=== PATIENT | male | born 1975 | race Caucasian/White ===

== ENCOUNTER 2016-05-08 08:17 | Emergency (ER) | payer MEDICAID ==
[2016-05-08 08:18] VITALS: BMI 30.3
[2016-05-08 08:31] VITALS: TEMP 97.9
[2016-05-08] MEDS ORDERED: NS 1,000 ML IV ONE (09:00)
[2016-05-08] MEDS ORDERED: MORPHINE 4 MG/ML INJECTION IV ONE (09:00)
[2016-05-08] MEDS ORDERED: ONDANSETRON HCL 4 MG/2 ML VIAL IV ONE (09:00)
--- NOTE | 2016-05-08 09:30 | DIRPT ---
CLINICAL DATA: Left side abdominal pain for 1 week EXAM: ABDOMEN - 2 VIEW COMPARISON: CT scan 05/02/2016 FINDINGS: There is normal small bowel gas pattern. Nonspecific air-fluid levels are noted in right colon without significant colonic distension. No free abdominal air. IMPRESSION: Normal small bowel gas pattern. Nonspecific air-fluid levels are noted in right colon without significant colonic distension. Electronically Signed By: John Lentz M.D. On: 05/08/2016 09:27
[2016-05-08 09:39] LABS: AUTOMATED BASOPHIL 0.8 % (0-2); AUTOMATED EOSINOPHIL 1.2 % (0-5); AUTOMATED LYMPH 16.5 % (17-44); AUTOMATED MONOCYTE 6.7 % (3-10); AUTOMATED NEUTROPHIL 74.8 % (45-76); MPV 6.7 fL (7.4-10.4)
--- NOTE | 2016-05-08 09:46 | EDPRACDOC ---
- General Information Information Source: Patient Mode Of Arrival: Car - History of Present Illness Onset: 1 WK Pain Location: Reports: LLQ, Flank (LEFT) Pain Context: Reports: Spontaneous Pain Severity: Moderate Pain Quality: Reports: Sharp, Stabbing Pain Radiation: Reports: No Radiation Adult Abdominal History: Reports: Similar Pain (dx) Modifying Factors: improves with: Nothing Oral Intake: Normal Urinary Output: Normal <Prachi Moran - Last Filed: 05/08/16 10:12> <Antonio Carmona - Last Filed: 05/10/16 07:22> - General Information Chief Complaint: Abdominal Pain Stated Complaint: LEFT FLANK PAIN Time Seen by Provider: 05/08/16 08:41 Home Medications: Home Medications Olmesartan Medoxomil [Benicar] 40 mg PO DAILY 09/14/12 Escitalopram Oxalate [Lexapro] 10 mg PO DAILY 02/03/15 Omeprazole [Prilosec] 20 mg PO DAILY 04/08/16 Oxycodone HCl [Oxycodone Immediate Release] 10 tab PO TID 04/08/16 Polysorbate 80/Glycerin [Refresh Dry Eye Therapy Drops] 1 each OU BID #30 droperette 04/19/16 Ergocalciferol (Vitamin D2) [Vitamin D2] 2,000 unit PO DAILY 05/02/16 Ondansetron [Zofran Odt] 4 mg PO Q6H PRN #20 tab.rapdis 05/02/16 Dicyclomine HCl [Bentyl] 10 mg PO Q6H #28 cap 05/08/16 Prednisone [Deltasone, Orasone] 2 tabs PO DAILY #20 tab 05/08/16 Allergies/Adverse Reactions: Allergies Allergy/AdvReac Type Severity Reaction Status Date / Time clindamycin Allergy Rash-Genera Verified 05/08/16 08:28 lized telmisartan [From Micardis] Allergy Rash-Genera Verified 05/08/16 08:28 lized - History of Present Illness HPI: PT PRESENTS TODAY WITH AOC LLQ ABD PAIN X 1 WEEK. PT STATES THAT HE HAS CROHN' S DISEASE AND BELIEVES HE IS HAVING A FLARE UP. WAS SEEN HERE LAST WEEK FOR SAME AND HAD NEGATIVE CT. FOLLOWS DR. ARMAS AND HAD RECENT EGD SHOWING MILD GASTRITIS. STATES CALLED [facility] BUT HE IS OUT OF TOWN. STATES PREDNISONE WAS WORKING FOR HIS PAIN BUT FEELS HE DID NOT HAVE "ENOUGH OF A DOSE ". DENIES FEVER, CP, SHOB, N/V/D, DYSURIA. NO APPARENT DISTRESS UPON MY ARRIVAL. (Prachi Moran) ED Past Medical History - History Reviewed Yes Nurses notes reviewed and agree except as marked - Patient Medical History Cardiac History: Reports: Hypertension Respiratory History: Reports: Pneumonia (3-4- years ago) GI/ History: Reports: IBD (CROHNS, IV REMICADE Q 6WEEKS.) Musculoskeletal History: Reports: Arthritis Psychological History: Reports: Anxiety, Substance Use Disorder. Denies: Depression Additional Past Medical History: CROHN'S DISEASE Surgical History: Reports: Other (Small-bowel resection) - Family Medical History Reports: Hypertension (grandfather), Diabetes (grandmother), Cancer (grandmother - multiple myleloma). Denies: Stroke, Cardiac Disorders - Social Medical History Smoking Status: Current some day smoker Social History: Reports: Substance Use Disorder <Prachi Moran - Last Filed: 05/08/16 10:12> EDM Review of Systems - Review of Systems ROS Negative Except as Marked: Yes All systems reviewed and were negative except as marked Constitutional: No Symptoms Reported Respiratory: No Symptoms Reported Cardiovascular: No Symptoms Reported Gastrointestinal: Pain Genitourinary: No Symptoms Reported Neurological: No Symptoms Reported Musculoskeletal: No Symptoms Reported Integumentary: No Symptoms Reported <Prachi Moran - Last Filed: 05/08/16 10:12> - Physical Exam Constitutional: Alert (Awake), No apparent distress Oriented to: Time, Person, Place - HEENT Head: Normal Eye Exam: Normal Neck: Normal, Denies Pain, Midline - Respiratory/Cardiovascular Respiratory: Normal - CTA Cardiovascular: Tachycardia - GI Auscultation: Decreased (HASN'T EATEN IN 12 HOURS) Palpation: Normal Tenderness: Moderate, LLQ Keenan's Sign: Negative - Bladder: Normal - Musculoskeletal Back: Normal Extremities: Normal - Integumentary Skin: Normal Lymphatics: Normal - Neurologic Cerebellar: Normal Mood Description: Normal Thought: Coherent Perception: Normal <Prachi Moran - Last Filed: 05/08/16 10:12> - Results 05/08/16 09:30 05/08/16 09:30 <Prachi Moran - Last Filed: 05/08/16 10:12> - Results 05/08/16 09:30 05/08/16 09:30 <Antonio Carmona - Last Filed: 05/10/16 07:22> - Results WBC 14.7 xk/uL (3.8-10.8) H 05/08/16 09:30 RBC 5.40 xM/uL (4.70-6.10) 05/08/16 09:30 Hgb 16.3 g/dL (14.0-18.0) D 05/08/16 09:30 Hct 47.5 % (42-52) 05/08/16 09:30 MCV 88 fL (80-94) 05/08/16 09:30 MCH 30.2 pg (27-32) 05/08/16 09:30 MCHC 34.4 g/dl (33-36) 05/08/16 09:30 RDW 13.4 % (11.5-14.5) 05/08/16 09:30 Plt Count 178 xk/uL (130-400) 05/08/16 09:30 MPV 6.7 fL (7.4-10.4) L 05/08/16 09:30 Neut % (Auto) 74.8 % (45-76) 05/08/16 09:30 Lymph % (Auto) 16.5 % (17-44) L 05/08/16 09:30 Morgan % (Auto) 6.7 % (3-10) 05/08/16 09:30 Eos % (Auto) 1.2 % (0-5) 05/08/16 09:30 Baso % (Auto) 0.8 % (0-2) 05/08/16 09:30 Absolute Neuts (auto) 10.88 xk/uL (1.7-8.2) H 05/08/16 09:30 Absolute Lymphs (auto) 2.35 xk/uL (0.65-4.75) 05/08/16 09:30 Sodium 141 mEq/L (137-146) 05/08/16 09:30 Potassium 3.8 mEq/L (3.5-5.1) 05/08/16 09:30 Chloride 102 mEq/L (98-107) 05/08/16 09:30 Carbon Dioxide 27 mMOL/L (22-33) 05/08/16 09:30 Anion Gap 16 mEq/L (8-16) 05/08/16 09:30 BUN 20 MG/DL (9-20) 05/08/16 09:30 Creatinine 0.70 MG/DL (0.66-1.25) 05/08/16 09:30 Estimated GFR (MDRD) > 60 mL/min (>=60) 05/08/16 09:30 Glucose 90 MG/DL (70-99) 05/08/16 09:30 Calculated Osmolality 274 MOs/Kg (270-290) 05/08/16 09:30 Calcium 9.2 MG/DL (8.4-10.2) 05/08/16 09:30 Total Bilirubin 0.7 MG/DL (0.2-1.3) 05/08/16 09:30 AST 26 IU/L (17-59) 05/08/16 09:30 ALT 43 IU/L (21-72) 05/08/16 09:30 Alkaline Phosphatase 102 IU/L (38-126) 05/08/16 09:30 Total Protein 7.9 G/DL (6.3-8.2) 05/08/16 09:30 Albumin 4.5 G/DL (3.5-5.0) 05/08/16 09:30 Urine Color Yellow 05/08/16 09:43 Urine Clarity Clear 05/08/16 09:43 Urine pH 6.0 (5.0-8.0) 05/08/16 09:43 Ur Specific [place] 1.020 (1.003-1.035) 05/08/16 09:43 Urine Protein Neg (NEG/TRACE) 05/08/16 09:43 Urine Glucose (UA) Neg (NEGATIVE) 05/08/16 09:43 Urine Ketones Neg (NEGATIVE) 05/08/16 09:43 Urine Occult Blood 1+ (NEG/TRACE) H 05/08/16 09:43 Urine Nitrite Neg (NEGATIVE) 05/08/16 09:43 Urine Bilirubin Neg (NEGATIVE) 05/08/16 09:43 Urine Urobilinogen <2.0 MG/DL (0-1) 05/08/16 09:43 Ur Leukocyte Esterase Neg (NEGATIVE) 05/08/16 09:43 Urine RBC 0-2 (0-2) 05/08/16 09:43 Urine WBC 0-2 (0-2) 05/08/16 09:43 Urine Mucus Occ (NEG/OCC) 05/08/16 09:43 Urine Opiates Screen *positive* (NEGATIVE) H 05/08/16 09:43 Ur Oxycodone Screen *positive* (NEGATIVE) H 05/08/16 09:43 Urine Methadone Screen Neg (NEGATIVE) 05/08/16 09:43 Ur Barbiturates Screen Neg (NEGATIVE) 05/08/16 09:43 Ur Tricyclics Screen Neg (NEGATIVE) 05/08/16 09:43 Ur Phencyclidine Scrn Neg (NEGATIVE) 05/08/16 09:43 Ur Amphetamines Screen Neg (NEGATIVE) 05/08/16 09:43 U Methamphetamines Scrn Neg (NEGATIVE) 05/08/16 09:43 Urine MDMA Screen Neg (NEGATIVE) 05/08/16 09:43 U Benzodiazepines Scrn *positive* (NEGATIVE) H 05/08/16 09:43 Urine Cocaine Screen Neg (NEGATIVE) 05/08/16 09:43 Ur THC Screen *positive* (NEGATIVE) H 05/08/16 09:43 Lab Results 05/08/16 05/08/16 05/08/16 09:43 09:43 09:30 WBC RBC Hgb Hct MCV MCH MCHC RDW Plt Count MPV Neut % (Auto) Lymph % (Auto) [place] % (Auto) Eos % (Auto) Baso % (Auto) Absolute Neuts (auto) Absolute Lymphs (auto) Sodium 141 Potassium 3.8 Chloride 102 Carbon Dioxide 27 Anion Gap 16 BUN 20 Creatinine 0.70 Estimated GFR (MDRD) > 60 Glucose 90 Calculated Osmolality 274 Calcium 9.2 Total Bilirubin 0.7 AST 26 ALT 43 Alkaline Phosphatase 102 Total Protein 7.9 Albumin 4.5 Urine Color Yellow Urine Clarity Clear Urine pH 6.0 Ur Specific [place] 1.020 Urine Protein Neg Urine Glucose (UA) Neg Urine Ketones Neg Urine Occult Blood 1+ H Urine Nitrite Neg Urine Bilirubin Neg Urine Urobilinogen <2.0 Ur Leukocyte Esterase Neg Urine RBC 0-2 Urine WBC 0-2 Urine Mucus Occ Urine Opiates Screen *positive* H Ur Oxycodone Screen *positive* H Urine Methadone Screen Neg Ur Barbiturates Screen Neg Ur Tricyclics Screen Neg Ur Phencyclidine Scrn Neg Ur Amphetamines Screen Neg U Methamphetamines Scrn Neg Urine MDMA Screen Neg U Benzodiazepines Scrn *positive* H Urine Cocaine Screen Neg Ur THC Screen *positive* H 05/08/16 09:30 WBC 14.7 H RBC 5.40 Hgb 16.3 D Hct 47.5 MCV 88 MCH 30.2 MCHC 34.4 RDW 13.4 Plt Count 178 MPV 6.7 L Neut % (Auto) 74.8 Lymph % (Auto) 16.5 L Morgan % (Auto) 6.7 Eos % (Auto) 1.2 Baso % (Auto) 0.8 Absolute Neuts (auto) 10.88 H Absolute Lymphs (auto) 2.35 Sodium Potassium Chloride Carbon Dioxide Anion Gap BUN Creatinine Estimated GFR (MDRD) Glucose Calculated Osmolality Calcium Total Bilirubin AST ALT Alkaline Phosphatase Total Protein Albumin Urine Color Urine Clarity Urine pH Ur Specific [place] Urine Protein Urine Glucose (UA) Urine Ketones Urine Occult Blood Urine Nitrite Urine Bilirubin Urine Urobilinogen Ur Leukocyte Esterase Urine RBC Urine WBC Urine Mucus Urine Opiates Screen Ur Oxycodone Screen Urine Methadone Screen Ur Barbiturates Screen Ur Tricyclics Screen Ur Phencyclidine Scrn Ur Amphetamines Screen U Methamphetamines Scrn Urine MDMA Screen U Benzodiazepines Scrn Urine Cocaine Screen Ur THC Screen (Antonio Carmona) - Additional Information UNREMARKABLE LABS/IMAGING. PT HAS ACTIVE NARCOTIC PRESCRIPTION AT HOME. ( Prachi Moran) Decision Time to Discharge: 10:13 - Departure Disposition: Home Education/Counseling Given To: Patient Education/Counseling Given Regarding: Diagnosis, Treatment, Follow Up <Parchi Moran - Last Filed: 05/08/16 10:12> <Antonio Carmona - Last Filed: 05/10/16 07:22> - Departure Condition: Good Final Diagnosis: Abdominal pain Instructions: Acute Abdominal Pain (ED) Referrals: Len Vicente MD [Primary Care Provider] - One Week Milton Armas MD [Staff Physician] - One Week Prescriptions: Dicyclomine HCl [Bentyl] 10 mg PO Q6H #28 cap Prednisone [Deltasone, Orasone] 2 tabs PO DAILY #20 tab Additional Instructions: CONTINUE OTHER PRESCRIPTIONS AT HOME PRESCRIBED. FOLLOW UP WITH DR. ARMAS AND PCP. FEEL FREE TO RETURN TO ED AT ANY POINT FOR ANY WORSE/ CONCERNING SYMPTOMS.
[2016-05-08 09:48] LABS: BLOOD UREA NITROGEN 20 MG/DL (9-20); CALCIUM 9.2 MG/DL (8.4-10.2); CALCULATED OSMOLALITY 274 MOs/Kg (270-290); CHLORIDE 102 mEq/L (98-107); GLUCOSE 90 MG/DL (70-99); SODIUM LEVEL 141 mEq/L (137-146); TOTAL PROTEIN 7.9 G/DL (6.3-8.2)
[2016-05-08 09:49] LABS: ALL NEG? NO
[2016-05-08 09:56] LABS: MDMA* NEG (NEGATIVE); METHAMPHETAMINES NEG (NEGATIVE)
[2016-05-08 09:57] LABS: OXYCODONE *POSITIVE* (NEGATIVE)
[2016-05-08 09:58] LABS: LEUKOCYTES/URINE NEG (NEGATIVE); NITRITE/URINE NEG (NEGATIVE); RBC/URINE 0-2 (0-2); URINE OCCULT BLOOD 1+ (NEG/TRACE); WBC/URINE 0-2 (0-2)
[2016-05-08] MEDS ORDERED: KETOROLAC TROMETH 30 MG/ML VIAL IV ONE (10:15)
[2016-05-08 10:56] VITALS: BP 120/71; PULSE 85
== END 2016-05-08 10:51 | disposition home or self-care (01) ==
LOC: ED 08:17
DX: R10.32 Left lower quadrant pain (principal)
CPT/HCPCS: 36415; 74020; 80053; 80307; 81001; 85025; 96361; 96374; 96375; 99283; J1885; J2270; J2405

== ENCOUNTER 2016-05-24 12:43 | Emergency (ER) | payer MEDICAID ==
[2016-05-24 13:04] VITALS: TEMP 98.2; BMI 30.5
[2016-05-24 13:24] LABS: RBC/URINE 0-2 (0-2); WBC/URINE 0-2 (0-2)
[2016-05-24 13:25] LABS: LEUKOCYTES/URINE NEG (NEGATIVE); NITRITE/URINE NEG (NEGATIVE); URINE OCCULT BLOOD NEG (NEG/TRACE)
[2016-05-24] MEDS ORDERED: SODIUM CHLORIDE 0.9% 3 ML FLUSH FLUSH PRN (14:24)
[2016-05-24] MEDS ORDERED: MORPHINE 4 MG/ML INJECTION IV ONE (14:24)
[2016-05-24] MEDS ORDERED: NS 1,000 ML IV ONE ×2 (14:24)
[2016-05-24] MEDS ORDERED: ONDANSETRON HCL 4 MG/2 ML VIAL IV ONE (14:24)
--- NOTE | 2016-05-24 14:28 | EDPRACDOC ---
- General Information Chief Complaint: Male Urogenital Problems Stated Complaint: LEFT SIDED PAIN Time Seen by Provider: 05/24/16 14:19 Information Source: Patient Mode of Arrival: Car Home Medications: Home Medications Olmesartan Medoxomil [Benicar] 40 mg PO DAILY 09/14/12 Escitalopram Oxalate [Lexapro] 10 mg PO DAILY 02/03/15 Omeprazole [Prilosec] 20 mg PO DAILY 04/08/16 Oxycodone HCl [Oxycodone Immediate Release] 10 tab PO TID PRN 04/08/16 Ergocalciferol (Vitamin D2) [Vitamin D2] 2,000 unit PO DAILY 05/02/16 Ondansetron [Zofran Odt] 4 mg PO Q6H PRN #20 tab.rapdis 05/02/16 Ketoprofen 75 mg PO TID #20 capsule 05/24/16 Mesalamine [Pentasa] 500 mg PO BID 05/24/16 Oxycodone Immediate Release [Oxycodone Immediate Release (OxyIR)] 5 - 10 mg PO Q6H PRN #20 tab 05/24/16 Prednisone [Deltasone, Orasone] 20 mg PO DIR 05/24/16 Allergies/Adverse Reactions: Allergies Allergy/AdvReac Type Severity Reaction Status Date / Time clindamycin Allergy Rash-Genera Verified 05/24/16 13:04 lized telmisartan [From Micardis] Allergy Rash-Genera Verified 05/24/16 13:04 lized - History of Present Illness Onset: week HPI: PT PRESENTS TO ED WITH LEFT LATERAL CHEST/ABD PAIN THAT GETS WORSE WITH TAKING DEEP BREATH IS SHARP STABBING, HAVING MILD SOB. PT CURRENTLY IS DIAPHORETIC AND TACHYCARDIC. STATES HAS BEEN GOING ON FOR APPROX 1 WEEK. STATES WAS SEEN HERE SEVERAL DAYS AGO AND WAS TOLD IT WAS A FLARE UP OF IBD, STATES HE SEEN [facility] AND TOLD DIDNT THINK THAT WAS THE PROBLEM. Chest Pain Location: Reports: Left Chest (LATERAL) Pain Radiation: Reports: None Symptoms Occur: Reports: Suddenly Cardiac Risk Factors: Reports: Smoker, Hypertension Cardiac History of: Reports: None PE Risk Factors: Reports: None Medications within 24 Hours: Reports: None Prehospital Care: Reports: None Pain Came On: Reports: Suddenly Pain Status: Present Now Pain Description: Reports: Sharp, Stabbing Pain Severity: Moderate Pain Worsens With: Reports: Breathing, Movement Pain Improves With: Reports: Nothing Associated Signs and Symptoms: Reports: SOB (MILD), Diaphoretic ED Past Medical History - History Reviewed Yes Nurses notes reviewed and agree except as marked Travel Outside of [place] in the Last 3 Months?: No - Patient Medical History Cardiac History: Reports: Hypertension Respiratory History: Reports: Pneumonia (3-4- years ago) GI/ History: Reports: IBD (CROHNS, IV REMICADE Q 6WEEKS.) Musculoskeletal History: Reports: Arthritis Psychological History: Reports: Anxiety, Substance Use Disorder. Denies: Depression Additional Past Medical History: CROHN'S DISEASE Surgical History: Reports: Other (Small-bowel resection) - Family Medical History Reports: Hypertension (grandfather), Diabetes (grandmother), Cancer (grandmother - multiple myleloma). Denies: Stroke, Cardiac Disorders - Social Medical History Smoking Status: Current some day smoker Social History: Reports: Substance Use Disorder ETOH: None Substance Abuse: None Lives With: Other Lives In: Home EDM Review of Systems - Review of Systems ROS Negative Except as Marked: Yes All systems reviewed and were negative except as marked Constitutional: No Symptoms Reported. negative: Fever, Chills, Weakness, Fatigue, Loss of Appetite Eyes: No Symptoms Reported. negative: Redness, Blurred Vision, Double Vision, Discharge, Pain, Light Sensitive, Photophobia Ears: No Symptoms Reported. negative: Pain, Hearing Loss, Drainage, Ear Pulling Throat: No Symptoms Reported. negative: Pain, Swelling Nose: No Symptoms Reported. negative: Congestion, Bleeding, Discharge, Injection, Swelling, Deformity, Ecchymosis, Tender, Abrasion, Laceration Mouth: No Symptoms Reported. negative: Pain, Drooling Respiratory: Shortness of Breath (MILD). negative: Barky Cough, Brassy Cough, Cough, Hemoptysis, Wheezing Cardiovascular: Chest Pain (LEFT LATERAL SHARP STABBING). negative: Cyanosis, Edema, Orthopnea, Palpitations, PND, Syncope, Skin Mottling Gastrointestinal: No Symptoms Reported. negative: Pain, Constipation, Nausea, Vomiting, Diarrhea, Melena, Formula Intolerance Genitourinary: No Symptoms Reported. negative: Dysuria, Hematuria, Frequency, Discharge, Bleeding, Testicular Pain, Neurological: No Symptoms Reported. negative: Headache, Dizziness, Seizure, Numbness, Weakness, Speech Difficulty, Gait Difficulty Musculoskeletal: No Symptoms Reported. negative: Neck, Chestwall, Ribs, Back, Shoulder, Arm, Elbow, Forearm, Wrist, Hand, Pelvis, Hip, Femur, Knee, Leg, Ankle , Foot Integumentary: Other (CLAMMY). negative: Bruising, Itching, Rash, Wound Allergic/Immunologic: No Symptoms Reported. negative: Hives, Itching Hematologic: No Symptoms Reported. negative: Lymphadenopathy, Easy Bruising, Easy Bleeding Endocrine: No Symptoms Reported. negative: Weight Gain, Weight Loss Psychiatric: No Symptoms Reported. negative: Anxiety, Depression, Hallucinations, Insomnia, Suicidal - Physical Exam Constitutional: Alert (Awake, UNCOMFORTABLE) Oriented to: Time, Person, Place Last recorded Vital Signs: Last Vital Signs Temp 98.2 F 05/24/16 13:02 Pulse 120 H 05/24/16 13:02 Resp 20 05/24/16 13:02 BP 142/76 05/24/16 13:02 Pulse Ox 96 05/24/16 13:02 Oxygen Pulse Oxygen Saturation 96 O2 Device Oxygen Flow Rate Fraction of Inspired Oxygen ( FIO2) - HEENT Head: Normal, Other (DIAPHORETIC) Eye Exam: Normal (PERRL, EOMI, Sclera white) Oropharynx: Normal (Pharynx:Moist without exudate,Gums-no swelling) Tympanic Membrane: Normal ENT EAC: Normal TMJ: Normal Nose: No Symptoms Reported (septum midline) Neck: Normal (FROM, trachea at midline) - Respiratory/Cardiovascular Respiratory: Diminished Cardiovascular: Tachycardia - GI Auscultation: Normal (NABS) Palpation: Normal (Soft,No rebound or guarding, non distended) Tenderness: Non tender Keenan's Sign: Negative - Bladder: Normal - Musculoskeletal Back: Normal (Non-Tender) Extremities: Normal (Normal tone, Pulses 2+ No cyanosis or edema, FROM) - Integumentary Skin: Normal, Warm, Dry Lymphatics: Normal (no adenopathy) - Neurologic Memory Impaired: Normal Motor Function: Normal (Normal tone, Pulses 2+ No cyanosis or edema, FROM) Cranial Nerve: Normal (CN II-X11 intact sensation, strength 5/5) Cerebellar: Normal Mood Description: Normal Perception: Normal ED Chest Pain Exam - Respiratory/Cardiovascular Respiratory: Diminished Cardiovascular/Chest: Tachycardia Radial Pulse: Normal Femoral Pulse: Normal Pedal Pulse: Normal Carotid Arteries: Normal Chest Palpation: Normal - Differential Diagnosis Costochondritis, Gastritis, Myocardial infarction, Pleuritis, Pneumonia, Pulmonary embolus - Action Patient received Aspirin within last 24 hours?: No ASA given in the ED: Yes Patient received Beta Jenny within last 24hrs: No - Results All Results Reviewed and Normal except as Highlighted below: Yes 05/24/16 14:45 05/24/16 14:45 Urine Color Yellow 05/24/16 12:48 Urine Clarity Sl hzy 05/24/16 12:48 Urine pH 6.0 (5.0-8.0) 05/24/16 12:48 Ur Specific [place] 1.020 (1.003-1.035) 05/24/16 12:48 Urine Protein Neg (NEG/TRACE) 05/24/16 12:48 Urine Glucose (UA) 2+ (NEGATIVE) 05/24/16 12:48 Urine Ketones Neg (NEGATIVE) 05/24/16 12:48 Urine Occult Blood Neg (NEG/TRACE) 05/24/16 12:48 Urine Nitrite Neg (NEGATIVE) 05/24/16 12:48 Urine Bilirubin Neg (NEGATIVE) 05/24/16 12:48 Urine Urobilinogen 0.2 MG/DL (0-1) 05/24/16 12:48 Ur Leukocyte Esterase Neg (NEGATIVE) 05/24/16 12:48 Urine RBC 0-2 (0-2) 05/24/16 12:48 Urine WBC 0-2 (0-2) 05/24/16 12:48 Urine Mucus Occ (NEG/OCC) 05/24/16 12:48 Lab Results 05/24/16 12:48 Urine Color Yellow Urine Clarity Sl hzy Urine pH 6.0 Ur Specific [place] 1.020 Urine Protein Neg Urine Glucose (UA) 2+ Urine Ketones Neg Urine Occult Blood Neg Urine Nitrite Neg Urine Bilirubin Neg Urine Urobilinogen 0.2 Ur Leukocyte Esterase Neg Urine RBC 0-2 Urine WBC 0-2 Urine Mucus Occ Laboratory Results - last 24 hr 05/24/16 12:48 Urine Color Yellow Urine Clarity Sl hzy Urine pH 6.0 Ur Specific [place] 1.020 Urine Protein Neg Urine Glucose (UA) 2+ Urine Ketones Neg Urine Occult Blood Neg Urine Nitrite Neg Urine Bilirubin Neg Urine Urobilinogen 0.2 Ur Leukocyte Esterase Neg Urine RBC 0-2 Urine WBC 0-2 Urine Mucus Occ - EKG EKG #1 EKG Time: 14:31 -: Yes EKG interpreted by me Rate: bpm: 98 [place]: Normal Rhythm: NSR Block: None Hypertrophy: None ST: Normal - Diagnostic Imaging CTA CHEST Image interpreted by: Radiologist IMPRESSION: No acute findings. Stable top-normal right hilar lymph node. Decision Time to Discharge: 15:45 - Departure Disposition: Home Condition: Stable Final Diagnosis: Left sided chest pain Instructions: Chest Pain (ED), Chest Wall Pain Education/Counseling Given To: Patient Education/Counseling Given Regarding: Diagnosis, Treatment, Prognosis, Follow Up Referrals: Len Vicente MD [Primary Care Provider] - One Week Prescriptions: Ketoprofen 75 mg PO TID #20 capsule Oxycodone Immediate Release [Oxycodone Immediate Release (OxyIR)] 5 - 10 mg PO Q6H PRN #20 tab PRN Reason: Pain
[2016-05-24] MEDS ORDERED: ASPIRIN 325 MG TAB PO ONE (14:33)
[2016-05-24] MEDS ORDERED: Pharmacy Review for Metformin - IV Contrast Given SCH (15:00)
[2016-05-24 15:09] LABS: AUTOMATED BASOPHIL 0.6 % (0-2); AUTOMATED EOSINOPHIL 1.3 % (0-5); AUTOMATED LYMPH 13.3 % (17-44); AUTOMATED MONOCYTE 8.1 % (3-10); AUTOMATED NEUTROPHIL 76.7 % (45-76); MPV 6.9 fL (7.4-10.4)
[2016-05-24 15:21] LABS: BLOOD UREA NITROGEN 18 MG/DL (9-20); CALCIUM 8.7 MG/DL (8.4-10.2); CALCULATED OSMOLALITY 265 MOs/Kg (270-290); CHLORIDE 105 mEq/L (98-107); GLUCOSE 81 MG/DL (70-99); PARTIAL THROMB. TIME 34.1 SEC (22-35); PT-INR 1.1; SODIUM LEVEL 137 mEq/L (137-146); TOTAL PROTEIN 7.2 G/DL (6.3-8.2)
--- NOTE | 2016-05-24 15:25 | DIRPT ---
CLINICAL DATA: Left lower chest pain which is worse with breathing. EXAM: CT ANGIOGRAPHY CHEST WITH CONTRAST TECHNIQUE: Multidetector CT imaging of the chest was performed using the standard protocol during bolus administration of intravenous contrast. Multiplanar CT image reconstructions and MIPs were obtained to evaluate the vascular anatomy. CONTRAST: 90 mL Isovue 370 IV COMPARISON: 06/16/2015 FINDINGS: The pulmonary arteries are very well opacified. There is no evidence of pulmonary embolism. The thoracic aorta shows normal patency and caliber. Proximal great vessels are normally patent. There is no evidence of pulmonary edema, consolidation, pneumothorax, nodule or pleural fluid. Stable top-normal size inferior right hilar lymph node measures 12 mm. No other enlarged lymph nodes. Upper abdomen shows steatosis of the liver. No bony abnormalities are seen. Review of the MIP images confirms the above findings. IMPRESSION: No acute findings. Stable top-normal right hilar lymph node. Electronically Signed By: Andry Gorman M.D. On: 05/24/2016 15:22
[2016-05-24] MEDS ORDERED: HYDROmorphone 1 MG INJECTION IV ONE (15:48)
[2016-05-24] MEDS ORDERED: OXYCODONE HCL 5 MG TABLET PO ONE (15:48)
[2016-05-24] MEDS ORDERED: KETOROLAC TROMETHAMINE 10 MG TAB PO ONE (15:48)
[2016-05-24 16:31] VITALS: BP 123/58; PULSE 82
[2016-05-24] MEDS ORDERED: SODIUM CHLORIDE 0.9% 3 ML FLUSH FLUSH SCH (18:00)
== END 2016-05-24 16:37 | disposition home or self-care (01) ==
LOC: EDMC 12:43
DX: R07.9 Chest pain, unspecified (principal)
CPT/HCPCS: 36415; 71275; 80053; 81001; 84484; 85025; 85610; 85730; 87040; 93005; 96361; 96374; 96375; 99283; A9698; J1170; J2270; J2405; J3490